=== PATIENT | male | born 1945 | race Caucasian/White ===

== ENCOUNTER 2024-03-20 13:27 | Inpatient (IN) | payer MEDICARE, BC ==
[~2024-03-20] VITALS: Ht 180.3 cm; Wt 99.8 kg
[2024-03-20] MEDS ORDERED: ONDANSETRON HCL 4 MG TABLET ONE (15:12)
[2024-03-20] MEDS ORDERED: MORPHINE SULFATE 4 MG/1 ML DISP.SYRIN ONE (15:13)
[2024-03-20 15:54] LABS: BASOPHILS # (AUTO) 0.1 K/UL (0.0-0.2); BASOPHILS % (AUTO) 0.9 % (0.0-2.0); HEMATOCRIT 42.8 % (36.7-47.1); HEMOGLOBIN 14.7 g/dL (12.5-16.3); LYMPHOCYTES # (AUTO) 0.5 K/uL (0.8-4.8); LYMPHOCYTES % (AUTO) 5.5 % (20.5-51.5); MEAN CORPUSCULAR HEMOGLOBIN 35.1 uug (23.8-33.4); MEAN CORPUSCULAR HGB CONC 34 g/dL (32.5-36.3); MEAN CORPUSCULAR VOLUME 102.1 fL (73.0-96.2); MONOCYTES # (AUTO) 0.8 K/uL (0.1-1.30); MONOCYTES % (AUTO) 9.2 % (0.0-11.0); NEUTROPHILS # (AUTO) 7.1 K/uL (1.8-8.9); NEUTROPHILS % (AUTO) 84.4 % (38.5-71.5); PLATELET COUNT (AUTO) 127 K/uL (152-348); RED BLOOD CELL COUNT(AUTO) 4.19 MIL/uL (4.06-5.63); RED CELL DISTRIBUTION WIDTH 13.9 % (12.1-16.2); WHITE BLOOD COUNT (AUTO) 8.4 K/uL (3.6-10.2)
[2024-03-20 15:55] LABS: DIFFERENTIAL COMMENT 1
[2024-03-20 16:04] LABS: CALCIUM 8.9 mg/dL (8.5-10.1); CARBON DIOXIDE 27 mmol/L (21-32); CHLORIDE 97 mmol/L (98-107); CREATININE 0.8 mg/dL (0.6-1.3); GLUCOSE 119 mg/dL (74-106); POTASSIUM 3.4 mmol/L (3.5-5.1); SODIUM SERUM 141 mmol/L (136-145); UREA NITROGEN, BLOOD 9 mg/dL (7-18)
[2024-03-20 16:17] LABS: ALANINE AMINOTRANSFERASE 124 U/L (16-63); ALBUMIN 3.7 g/dL (3.4-5.0); ALKALINE PHOSPHATASE 106 U/L (50-136); ASPARTATE AMINOTRANSFERASE 295 U/L (15-37); BILIRUBIN,DIRECT 0.7 mg/dL (0.0-0.2); BILIRUBIN,TOTAL 2.1 mg/dL (0.2-1.0); NT-PRO BNP 293 pg/mL (0-125); TOTAL PROTEIN, SERUM 7.4 g/dL (6.4-8.2)
[2024-03-20] MEDS ORDERED: CLONIDINE HCL 0.2 MG TABLET ONE (17:03)
[2024-03-20] MEDS ORDERED: LORAZEPAM 2 MG/1 ML VIAL ONE (17:05)
[2024-03-20] MEDS: LORAZEPAM 2 MG/1 ML VIAL IV ONE (17:16)
[2024-03-20] MEDS: CLONIDINE HCL 0.2 MG TABLET PO ONE (17:17)
[2024-03-20] MEDS ORDERED: POTASSIUM CHLORIDE 20 MEQ TAB.PRT.SR ONE (17:52)
[2024-03-20] MEDS: POTASSIUM BICARBONATE/CIT AC 25 MEQ TABLET.EFF PO ONE (17:58)
[2024-03-20] MEDS ORDERED: POTASSIUM BICARBONATE/CIT AC 25 MEQ TABLET.EFF ONE (18:00)
[2024-03-20] MEDS ORDERED: FURO80TA3 PO (18:21)
[2024-03-20] MEDS ORDERED: IV NS 1000 ML 1,000 ML IV PRN (18:45)
[2024-03-20] MEDS ORDERED: REMEDY ESSENTIAL ZINC PASTE 113 GM TP PRN (18:45)
[2024-03-20] MEDS ORDERED: ACETAMINOPHEN/CODEINE 300-30 MG TABLET PO PRN (18:45)
[2024-03-20] MEDS ORDERED: ONDANSETRON 4 MG/2 ML VIAL IV PRN (18:45)
[2024-03-20] MEDS ORDERED: MAGNESIUM HYDROXIDE 30 ML LIQUID UDC PO PRN (18:45)
[2024-03-20] MEDS: CHLORDIAZEPOXIDE HCL 25 MG CAPSULE PO PRN (22:33)
[2024-03-20] MEDS: OLANZAPINE 10 MG VIAL IM ONE (23:18)
[2024-03-21 04:33] VITALS: BP 121/85; TEMP 99; O2SAT 92
[2024-03-21] MEDS: ACETAMINOPHEN 325 MG TABLET PO PRN (06:30)
[2024-03-21 07:16] LABS: BASOPHILS % (AUTO) 0.1 % (0.0-2.0); HEMATOCRIT 43.8 % (36.7-47.1); HEMOGLOBIN 15.1 g/dL (12.5-16.3); LYMPHOCYTES # (AUTO) 2.9 K/uL (0.8-4.8); MEAN CORPUSCULAR HEMOGLOBIN 35.9 uug (23.8-33.4); MEAN CORPUSCULAR HGB CONC 34 g/dL (32.5-36.3); MEAN CORPUSCULAR VOLUME 104.4 fL (73.0-96.2); MONOCYTES # (AUTO) 1.8 K/uL (0.1-1.30); MONOCYTES % (AUTO) 17.4 % (0.0-11.0); NEUTROPHILS # (AUTO) 5.6 K/uL (1.8-8.9); NEUTROPHILS % (AUTO) 54.5 % (38.5-71.5); PLATELET COUNT (AUTO) 126 K/uL (152-348); RED CELL DISTRIBUTION WIDTH 13.7 % (12.1-16.2); WHITE BLOOD COUNT (AUTO) 10.2 K/uL (3.6-10.2)
[2024-03-21 07:26] LABS: CALCIUM 9.8 mg/dL (8.5-10.1); CARBON DIOXIDE 30 mmol/L (21-32); CHLORIDE 99 mmol/L (98-107); CHOLESTEROL 191 mg/dL (<200); CREATININE 1.2 mg/dL (0.6-1.3); GLUCOSE 119 mg/dL (74-106); HDL CHOLESTEROL 102 mg/dL (40-60); MAGNESIUM 2.2 mg/dL (1.8-2.4); PHOSPHOROUS 3.9 mg/dL (2.5-4.9); POTASSIUM 3.9 mmol/L (3.5-5.1); SODIUM SERUM 141 mmol/L (136-145); TRIGLYCERIDES 94 MG/DL (30-150); UREA NITROGEN, BLOOD 11 mg/dL (7-18)
[2024-03-21 07:27] LABS: DIFFERENTIAL COMMENT 1
[2024-03-21 07:47] VITALS: BP 170/86; TEMP 99.1; O2SAT 90
[2024-03-21 08:21] LABS: THYROID STIMULATING HORMONE 2.666 mIU/mL (0.358-3.740)
[2024-03-21] MEDS: THIAMINE HCL 100 MG TABLET PO SCH (09:40)
[2024-03-21 10:57] LABS: LYMPHOCYTES % (MANUAL) 28 % (20-40); MONOCYTES % (MANUAL) 17 % (2-10); NEUTROPHILS % (MANUAL) 55 % (42-75)
[2024-03-21 10:58] LABS: PLATELET ESTIMATE DECREASED
[2024-03-21 11:56] VITALS: BP 125/82; TEMP 97.6; O2SAT 97
[2024-03-21] MEDS ORDERED: TIZA4TAB5 PO (12:50)
[2024-03-21 14:41] LABS: *BILIRUBIN,URIN 1+ (NEGATIVE); *BLOOD, URINE 3+ (NEGATIVE); *CLARITY,URINE CLEAR (CLEAR); *COLOR,URINE DARK YELLOW (YELLOW); *KETONES,URINE 3+ (NEGATIVE); *PROTEIN,URINE 2+ (NEGATIVE); LEUKOCYTE ESTERASE ,URINE NEGATIVE (NEGATIVE); NITRITE, URINE POSITIVE (NEGATIVE); PH,URINE 8.5 (5.0-8.0); UGLUCOSE NEGATIVE (NEGATIVE)
[2024-03-21 14:55] LABS: BACTERIA,URINE FEW /HPF (NONE SEEN); SQUAMOUS EPITHELIAL CELL,UR FEW /HPF (NONE SEEN); WBC,URINE 0-3 /HPF (0-3)
[2024-03-21 14:57] LABS: *AMPHETAMINE, URINE NEGATIVE (NEGATIVE); *BARBITURATE, URINE NEGATIVE (NEGATIVE); *BENZODIAZEPINE, URINE NEGATIVE (NEGATIVE); *CANNABINOID, URINE NEGATIVE (NEGATIVE); *COCCAINE, URINE NEGATIVE (NEGATIVE); *OPIATE, URINE NEGATIVE (NEGATIVE); *PHENCYCLIDINE SCREEN,URINE NEGATIVE (NEGATIVE); FENTANYL, URINE NEGATIVE (NEGATIVE)
[2024-03-21 15:54] VITALS: BP 132/73; TEMP 97.6; O2SAT 93
[2024-03-21] MEDS: IV D5/ 0.9% NACL 1,000 ML IV PRN (17:58)
[2024-03-21 19:00] VITALS: BP 166/96; TEMP 98.3; O2SAT 96
[2024-03-21] MEDS: LORAZEPAM 2 MG/1 ML VIAL IV PRN (19:22)
[2024-03-22] VITALS (7 sets, daily range): BP systolic 115–156; BP diastolic 69–95; TEMP 98.2–98.6; O2SAT 94–96
[2024-03-22] MEDS: TIZANIDINE HCL 4 MG TABLET PO PRN (02:27)
[2024-03-22 07:37] LABS: CALCIUM 8.7 mg/dL (8.5-10.1); CARBON DIOXIDE 32 mmol/L (21-32); CHLORIDE 106 mmol/L (98-107); CREATININE 0.8 mg/dL (0.6-1.3); GLUCOSE 120 mg/dL (74-106); POTASSIUM 3.2 mmol/L (3.5-5.1); SODIUM SERUM 145 mmol/L (136-145); UREA NITROGEN, BLOOD 17 mg/dL (7-18)
[2024-03-22] MEDS: CEFTRIAXONE 1 G in IV DEXTROSE 5% 50 ML IV SCH (10:39)
[2024-03-22] MEDS: POTASSIUM CHLORIDE 20 MEQ POWDER PACKET PO ONE ×2 (10:41→14:06)
[2024-03-22] MEDS ORDERED: methylPREDNISolone 1 PACK TAB.DS.PK [4MG TAB] PO ONE (13:30)
[2024-03-22] MEDS: MEDIHONEY= THERAHONEY 1.5 OZ TUBE TOP SCH (17:58)
[2024-03-23] VITALS: BP 138/77; TEMP 98.4; O2SAT 98
[2024-03-23 04:00] VITALS: BP 172/96; TEMP 98.7; O2SAT 96
[2024-03-23 04:32] VITALS: O2SAT 95
[2024-03-23] MEDS: hydrALAZINE HCL 10 MG TABLET PO PRN (06:00)
[2024-03-23] MEDS: PANTOPRAZOLE SODIUM 40 MG TABLET.DR PO SCH (06:40)
[2024-03-23] MEDS: methylPREDNISolone 4 MG TABLET PO ONE ×2 (06:40→12:00)
[2024-03-23 06:54] LABS: CALCIUM 8.8 mg/dL (8.5-10.1); CARBON DIOXIDE 35 mmol/L (21-32); CHLORIDE 110 mmol/L (98-107); CREATININE 0.7 mg/dL (0.6-1.3); GLUCOSE 96 mg/dL (74-106); POTASSIUM 3.4 mmol/L (3.5-5.1); SODIUM SERUM 148 mmol/L (136-145); UREA NITROGEN, BLOOD 14 mg/dL (7-18)
[2024-03-23 07:48] VITALS: BP 157/85; TEMP 98.2; O2SAT 97
[2024-03-23] MEDS ORDERED: FAMOTIDINE 20 MG TABLET PO SCH (09:00)
[2024-03-23] MEDS: CEFTRIAXONE 2 G in IV DEXTROSE 5% 100 ML IV SCH (10:41)
[2024-03-23 11:35] VITALS: BP 156/89; TEMP 97.7; O2SAT 96
[2024-03-23] MEDS: POTASSIUM CHLORIDE 20 MEQ TAB.PRT.SR PO ONE (12:00)
[2024-03-23] MEDS ORDERED: HONE15GE TP (14:59)
[2024-03-23] MEDS ORDERED: THIA50TA10 PO (14:59)
[2024-03-23] MEDS ORDERED: MAGN30OR PO (14:59)
[2024-03-23] MEDS ORDERED: ZINC113P3 TP (14:59)
[2024-03-23] MEDS ORDERED: CEPH500C2 PO (14:59)
[2024-03-23] MEDS ORDERED: ACET1TAB23 PO (14:59)
[2024-03-23] MEDS ORDERED: ACET-3117 PO (14:59)
[2024-03-23] MEDS ORDERED: METH4TAB3 PO (14:59)
[2024-03-23] MEDS ORDERED: PANT40TA49 PO (14:59)
[2024-03-23] MEDS ORDERED: HYDR-4075 PO (14:59)
[2024-03-23] MEDS ORDERED: TIZA4CAP6 PO (14:59)
[2024-03-23] MEDS ORDERED: methylPREDNISolone 4 MG TABLET PO ONE ×2 (18:30→21:00)
[2024-03-24] MEDS ORDERED: methylPREDNISolone 4 MG TABLET PO ONE ×4 (07:30→21:00)
[2024-03-25] MEDS ORDERED: methylPREDNISolone 4 MG TABLET PO ONE ×4 (07:30→21:00)
[2024-03-26] MEDS ORDERED: methylPREDNISolone 4 MG TABLET PO ONE ×3 (07:30→21:00)
[2024-03-27] MEDS ORDERED: methylPREDNISolone 4 MG TABLET PO ONE ×2 (07:30→21:00)
[2024-03-28] MEDS ORDERED: methylPREDNISolone 4 MG TABLET PO ONE (07:30)
== END 2024-03-23 13:55 | DRG 640 ==
LOC: ER 13:27 → TELE3 21:20
PROVIDERS: ADMIT Nurse Practitioner Acute Care; ATTEND Nurse Practitioner Acute Care
DX: E51.2 Wernicke's encephalopathy (principal); G93.41 Metabolic encephalopathy; N39.0 Urinary tract infection, site not specified; F10.239 Alcohol dependence with withdrawal, unspecified; K70.10 Alcoholic hepatitis without ascites; F10.229 Alcohol dependence with intoxication, unspecified; D69.59 Other secondary thrombocytopenia; G89.29 Other chronic pain; R60.0 Localized edema; R62.7 Adult failure to thrive; Z68.30 Body mass index [BMI] 30.0-30.9, adult; E66.9 Obesity, unspecified; R79.89 Other specified abnormal findings of blood chemistry; R26.89 Other abnormalities of gait and mobility; R53.1 Weakness; M54.50 Low back pain, unspecified; K76.0 Fatty (change of) liver, not elsewhere classified; I11.9 Hypertensive heart disease without heart failure; Z74.01 Bed confinement status; L89.156 Pressure-induced deep tissue damage of sacral region; L89.326 Pressure-induced deep tissue damage of left buttock; L89.316 Pressure-induced deep tissue damage of right buttock
CPT/HCPCS: 36415; 70030-TC; 70450; 71045; 76700; 83690; 83735; 84100; 84443; 84484; 85025; 93307; 94760; A6213; G0378; G0480; J0696; J2060; J2270; J2358; J7042; J7509; Q0162

== ENCOUNTER 2024-03-23 14:20 | Inpatient (IN) | payer MEDICARE, BC ==
[~2024-03-23] VITALS: Ht 177.8 cm; Wt 99.8 kg
[~2024-03-23 14:20] MED LIST: FURO80TA3 PO; TIZA4TAB5 PO
[2024-03-23 14:43] VITALS: BP 155/82; TEMP 98.4; O2SAT 96
[2024-03-23] MEDS ORDERED: HONE15GE TP (14:59)
[2024-03-23] MEDS ORDERED: THIA50TA10 PO (14:59)
[2024-03-23] MEDS ORDERED: CEPH500C2 PO (14:59)
[2024-03-23] MEDS ORDERED: METH4TAB3 PO (14:59)
[2024-03-23] MEDS ORDERED: ACET1TAB23 PO (14:59)
[2024-03-23] MEDS ORDERED: MAGN30OR PO (14:59)
[2024-03-23] MEDS ORDERED: PANT40TA49 PO (14:59)
[2024-03-23] MEDS ORDERED: TIZA4CAP6 PO (14:59)
[2024-03-23] MEDS ORDERED: ACET-3117 PO (14:59)
[2024-03-23] MEDS ORDERED: ZINC113P3 TP (14:59)
[2024-03-23] MEDS ORDERED: HYDR-4075 PO (14:59)
[2024-03-23 15:00] VITALS: O2SAT 96
[2024-03-23] MEDS ORDERED: TIZANIDINE HCL 4 MG TABLET PO PRN (16:15)
[2024-03-23] MEDS ORDERED: methylPREDNISolone 1 PACK TAB.DS.PK [4MG TAB] PO SCH (16:15)
[2024-03-23] MEDS ORDERED: HOME MED MISCELLANEOUS XX SCH ×3 (16:15)
[2024-03-23] MEDS ORDERED: ACETAMINOPHEN 325 MG TABLET PO PRN (16:15)
[2024-03-23] MEDS ORDERED: MAGNESIUM HYDROXIDE 30 ML LIQUID UDC PO PRN (16:45)
[2024-03-23] MEDS ORDERED: methylPREDNISolone 4 MG TABLET PO ONE (18:30)
[2024-03-23] MEDS: methylPREDNISolone 4 MG TABLET PO ONE ×2 (18:47→21:03)
[2024-03-23 20:28] VITALS: BP 155/94; TEMP 97.6; O2SAT 93
[2024-03-23] MEDS: hydrALAZINE HCL 10 MG TABLET PO PRN (21:03)
[2024-03-23] MEDS: CHLORDIAZEPOXIDE HCL 25 MG CAPSULE PO PRN (21:04)
[2024-03-23] MEDS: METOPROLOL TARTRATE 25 MG TABLET PO SCH (22:30)
[2024-03-23] MEDS: hydrALAZINE HCL 25 MG TABLET PO PRN (22:32)
[2024-03-24 01:20] VITALS: O2SAT 97
[2024-03-24] MEDS: PANTOPRAZOLE SODIUM 40 MG TABLET.DR PO SCH (06:13)
[2024-03-24 06:14] VITALS: BP 156/99; TEMP 97.7; O2SAT 92
[2024-03-24] MEDS: methylPREDNISolone 4 MG TABLET PO ONE ×4 (06:15→21:31)
[2024-03-24] MEDS: CEphaleXIN 500 MG CAPSULE PO SCH (06:16)
[2024-03-24] MEDS: THIAMINE HCL 100 MG TABLET PO SCH (09:28)
[2024-03-24] MEDS: MEDIHONEY= THERAHONEY 1.5 OZ TUBE TOP SCH (09:30)
[2024-03-24 15:13] VITALS: TEMP 97.3
[2024-03-24] MEDS: TRIAMCINOLONE ACET 0.1% CREAM 15 GM TUBE TOP SCH (18:14)
[2024-03-24 20:00] VITALS: BP 160/94; TEMP 98; O2SAT 94
[2024-03-25] VITALS (7 sets, daily range): BP systolic 111–157; BP diastolic 66–81; TEMP 97.6–98.3; O2SAT 94–97
[2024-03-25] MEDS ORDERED: CHLORDIAZEPOXIDE HCL 25 MG CAPSULE PO PRN (00:15)
[2024-03-25] MEDS: methylPREDNISolone 4 MG TABLET PO ONE ×5 (06:45→21:28)
[2024-03-25 08:20] LABS: BASOPHILS % (AUTO) 0.3 % (0.0-2.0); EOSINOPHILS % (AUTO) 0.5 % (0.0-7.0); HEMATOCRIT 41.7 % (36.7-47.1); HEMOGLOBIN 13.9 g/dL (12.5-16.3); LYMPHOCYTES # (AUTO) 0.6 K/uL (0.8-4.8); LYMPHOCYTES % (AUTO) 7.3 % (20.5-51.5); MEAN CORPUSCULAR HEMOGLOBIN 35.2 uug (23.8-33.4); MEAN CORPUSCULAR HGB CONC 33 g/dL (32.5-36.3); MEAN CORPUSCULAR VOLUME 105.8 fL (73.0-96.2); MONOCYTES % (AUTO) 12.6 % (0.0-11.0); NEUTROPHILS # (AUTO) 6.5 K/uL (1.8-8.9); NEUTROPHILS % (AUTO) 79.3 % (38.5-71.5); PLATELET COUNT (AUTO) 112 K/uL (152-348); RED BLOOD CELL COUNT(AUTO) 3.94 MIL/uL (4.06-5.63); RED CELL DISTRIBUTION WIDTH 13.9 % (12.1-16.2); WHITE BLOOD COUNT (AUTO) 8.2 K/uL (3.6-10.2)
[2024-03-25 08:21] LABS: DIFFERENTIAL COMMENT 1
[2024-03-25 08:36] LABS: ALANINE AMINOTRANSFERASE 233 U/L (16-63); ALBUMIN 2.9 g/dL (3.4-5.0); ALKALINE PHOSPHATASE 105 U/L (50-136); ASPARTATE AMINOTRANSFERASE 197 U/L (15-37); BILIRUBIN,TOTAL 1.4 mg/dL (0.2-1.0); CALCIUM 8.7 mg/dL (8.5-10.1); CARBON DIOXIDE 32 mmol/L (21-32); CHLORIDE 111 mmol/L (98-107); CREATININE 0.9 mg/dL (0.6-1.3); GLUCOSE 154 mg/dL (74-106); MAGNESIUM 2.3 mg/dL (1.8-2.4); PHOSPHOROUS 3.9 mg/dL (2.5-4.9); POTASSIUM 3.9 mmol/L (3.5-5.1); SODIUM SERUM 151 mmol/L (136-145); TOTAL PROTEIN, SERUM 6.7 g/dL (6.4-8.2); UREA NITROGEN, BLOOD 27 mg/dL (7-18)
[2024-03-25] MEDS: ACETAMINOPHEN/CODEINE 300-30 MG TABLET PO PRN (09:06)
[2024-03-26 03:14] VITALS: O2SAT 97
[2024-03-26 06:34] VITALS: BP 172/81; TEMP 97.5; O2SAT 95
[2024-03-26] MEDS: methylPREDNISolone 4 MG TABLET PO ONE ×2 (06:48→21:37)
[2024-03-26 07:28] LABS: BASOPHILS % (AUTO) 0.4 % (0.0-2.0); EOSINOPHILS % (AUTO) 0.6 % (0.0-7.0); HEMATOCRIT 40.8 % (36.7-47.1); HEMOGLOBIN 13.7 g/dL (12.5-16.3); LYMPHOCYTES # (AUTO) 0.7 K/uL (0.8-4.8); LYMPHOCYTES % (AUTO) 9.5 % (20.5-51.5); MEAN CORPUSCULAR HEMOGLOBIN 35.7 uug (23.8-33.4); MEAN CORPUSCULAR HGB CONC 34 g/dL (32.5-36.3); MEAN CORPUSCULAR VOLUME 106.6 fL (73.0-96.2); MONOCYTES # (AUTO) 1.3 K/uL (0.1-1.30); MONOCYTES % (AUTO) 17.3 % (0.0-11.0); NEUTROPHILS # (AUTO) 5.3 K/uL (1.8-8.9); NEUTROPHILS % (AUTO) 72.2 % (38.5-71.5); PLATELET COUNT (AUTO) 106 K/uL (152-348); RED BLOOD CELL COUNT(AUTO) 3.83 MIL/uL (4.06-5.63); RED CELL DISTRIBUTION WIDTH 13.7 % (12.1-16.2); WHITE BLOOD COUNT (AUTO) 7.3 K/uL (3.6-10.2)
[2024-03-26 07:32] LABS: DIFFERENTIAL COMMENT 1
[2024-03-26 08:00] LABS: ALANINE AMINOTRANSFERASE 189 U/L (16-63); ALBUMIN 2.8 g/dL (3.4-5.0); ALKALINE PHOSPHATASE 96 U/L (50-136); ASPARTATE AMINOTRANSFERASE 118 U/L (15-37); BILIRUBIN,TOTAL 1.1 mg/dL (0.2-1.0); CALCIUM 8.8 mg/dL (8.5-10.1); CARBON DIOXIDE 34 mmol/L (21-32); CHLORIDE 115 mmol/L (98-107); CREATININE 0.8 mg/dL (0.6-1.3); GLUCOSE 106 mg/dL (74-106); MAGNESIUM 2.5 mg/dL (1.8-2.4); PHOSPHOROUS 4.7 mg/dL (2.5-4.9); POTASSIUM 4.2 mmol/L (3.5-5.1); SODIUM SERUM 154 mmol/L (136-145); TOTAL PROTEIN, SERUM 6.3 g/dL (6.4-8.2); UREA NITROGEN, BLOOD 23 mg/dL (7-18)
[2024-03-26 09:05] LABS: EOSINOPHILS % (MANUAL) 1 % (0-8); LYMPHOCYTES % (MANUAL) 10 % (20-40); MONOCYTES % (MANUAL) 17 % (2-10); NEUTROPHILS % (MANUAL) 72 % (42-75); PLATELET ESTIMATE DECREASED
[2024-03-26] MEDS: REMEDY ESSENTIAL ZINC PASTE 113 GM TOP PRN (10:21)
[2024-03-26 12:10] VITALS: BP 121/70; TEMP 97.6; O2SAT 96
[2024-03-26] MEDS: IV D5W 1000ML 1,000 ML IV SCH (13:21)
[2024-03-26 16:00] VITALS: BP 130/65; TEMP 98.8; O2SAT 94
[2024-03-26 20:09] VITALS: BP 134/69; TEMP 97.4; O2SAT 90
[2024-03-26 20:57] LABS: ABG HCO3 30.9 mmol/L (21.0-28.0); ABG PCO2 75.7 mmHg (35.0-48.0); ABG PH 7.229 (7.350-7.450); ABG PO2 94.9 mmHg (83.0-108.0); ABG SITE LEFT RADIAL; ABG TOTAL HEMOGLOBIN 14.7 G/dL (13.5-17.5); AaDO2 95.6 mmHg; COHb 1.2 % (0.5-1.5); MetHb 0.2 % (0.0-1.5); O2Hb 94.5 % (94.0-98.0)
[2024-03-26] MEDS ORDERED: IPRATROPIUM BROMIDE 0.5 MG/2.5 ML NEBU NEB PRN (21:15)
[2024-03-26] MEDS ORDERED: ALBUTEROL SULFATE 2.5 MG/3 ML NEBU NEB PRN (21:15)
[2024-03-26] MEDS ORDERED: methylPREDNISolone 4 MG TABLET ONE (21:29)
[2024-03-26 21:38] VITALS: BP 134/69
[2024-03-27] MEDS ORDERED: methylPREDNISolone 4 MG TABLET PO ONE ×2 (07:30→21:00)
[2024-03-27] MEDS ORDERED: ACET325T53 PO (09:16)
[2024-03-28] MEDS ORDERED: methylPREDNISolone 4 MG TABLET PO ONE (07:30)
== END 2024-03-26 22:30 | disposition short-term general hospital (02) | DRG 640 ==
PROVIDERS: ADMIT Physical Medicine & Rehabilitation; ATTEND Physical Medicine & Rehabilitation Pain Medicine
DX: E51.2 Wernicke's encephalopathy (principal); G92.8 Other toxic encephalopathy; N39.0 Urinary tract infection, site not specified; F10.139 Alcohol abuse with withdrawal, unspecified; E87.0 Hyperosmolality and hypernatremia; D69.59 Other secondary thrombocytopenia; G89.29 Other chronic pain; L89.159 Pressure ulcer of sacral region, unspecified stage; E66.9 Obesity, unspecified; Z68.30 Body mass index [BMI] 30.0-30.9, adult; D53.9 Nutritional anemia, unspecified; B96.89 Other specified bacterial agents as the cause of diseases classified elsewhere; E78.5 Hyperlipidemia, unspecified; R60.0 Localized edema; F10.129 Alcohol abuse with intoxication, unspecified; I10 Essential (primary) hypertension; K70.30 Alcoholic cirrhosis of liver without ascites; M47.812 Spondylosis without myelopathy or radiculopathy, cervical region; R09.02 Hypoxemia; Z74.09 Other reduced mobility; R26.89 Other abnormalities of gait and mobility
CPT/HCPCS: 36415; 36600; 70030-TC; 71045; 82803; 83735; 84100; 85025; 97535-GO-CO; A4606; A4663; J7070; J7509

== ENCOUNTER 2024-03-26 23:31 | Inpatient (IN) | payer MEDICARE, BC ==
[~2024-03-26] VITALS: Ht 177.8 cm; Wt 103.1 kg
[~2024-03-26 23:31] MED LIST changes: +ACET-3117 PO; +ACET1TAB23 PO; +CEPH500C2 PO; +HONE15GE TP; +HYDR-4075 PO; +MAGN30OR PO; +METH4TAB3 PO; +PANT40TA49 PO; +THIA50TA10 PO; +TIZA4CAP6 PO; -TIZA4TAB5 PO; +ZINC113P3 TP
[2024-03-27 00:20] LABS: BASOPHILS % (AUTO) 0.4 % (0.0-2.0); EOSINOPHILS % (AUTO) 0.7 % (0.0-7.0); HEMATOCRIT 44.2 % (36.7-47.1); HEMOGLOBIN 14.7 g/dL (12.5-16.3); LYMPHOCYTES # (AUTO) 0.7 K/uL (0.8-4.8); LYMPHOCYTES % (AUTO) 10.9 % (20.5-51.5); MEAN CORPUSCULAR HEMOGLOBIN 35.5 uug (23.8-33.4); MEAN CORPUSCULAR HGB CONC 33 g/dL (32.5-36.3); MEAN CORPUSCULAR VOLUME 107.1 fL (73.0-96.2); MONOCYTES # (AUTO) 1.2 K/uL (0.1-1.30); NEUTROPHILS # (AUTO) 4.5 K/uL (1.8-8.9); PLATELET COUNT (AUTO) 110 K/uL (152-348); RED BLOOD CELL COUNT(AUTO) 4.13 MIL/uL (4.06-5.63); RED CELL DISTRIBUTION WIDTH 13.9 % (12.1-16.2); WHITE BLOOD COUNT (AUTO) 6.5 K/uL (3.6-10.2)
[2024-03-27 00:23] LABS: ABG BASE EXCESS 5.9 mmol/L (-2.0-3.0); ABG PCO2 80.5 mmHg (35.0-48.0); ABG PH 7.268 (7.350-7.450); ABG PO2 98.2 mmHg (83.0-108.0); ABG SITE RIGHT RADIAL; ABG TOTAL HEMOGLOBIN 14.6 G/dL (13.5-17.5); AaDO2 96.2 mmHg; COHb 0.8 % (0.5-1.5); MetHb 0.2 % (0.0-1.5); O2Hb 95.9 % (94.0-98.0)
[2024-03-27 00:41] LABS: DIFFERENTIAL COMMENT 1
[2024-03-27 00:53] LABS: ALANINE AMINOTRANSFERASE 197 U/L (16-63); ALBUMIN 2.9 g/dL (3.4-5.0); ALKALINE PHOSPHATASE 107 U/L (50-136); ASPARTATE AMINOTRANSFERASE 110 U/L (15-37); BILIRUBIN,DIRECT 0.4 mg/dL (0.0-0.2); CALCIUM 8.6 mg/dL (8.5-10.1); CARBON DIOXIDE 35 mmol/L (21-32); CHLORIDE 112 mmol/L (98-107); CREATININE 0.8 mg/dL (0.6-1.3); GLUCOSE 114 mg/dL (74-106); NT-PRO BNP 1120 pg/mL (0-125); SODIUM SERUM 151 mmol/L (136-145); TOTAL PROTEIN, SERUM 6.7 g/dL (6.4-8.2); UREA NITROGEN, BLOOD 21 mg/dL (7-18)
[2024-03-27] MEDS ORDERED: ALBUTEROL SULFATE 2.5 MG/3 ML NEBU NEB PRN (01:15)
[2024-03-27] MEDS ORDERED: MAGNESIUM HYDROXIDE 30 ML LIQUID UDC PO PRN (01:15)
[2024-03-27] MEDS ORDERED: ENOXAPARIN SODIUM 40 MG/0.4 ML DISP.SYRIN SQ SCH (01:15)
[2024-03-27] MEDS ORDERED: ONDANSETRON 4 MG/2 ML VIAL IV PRN (01:15)
[2024-03-27] MEDS: IV D5W 1000ML 1,000 ML IV ONE (01:27)
[2024-03-27 02:42] LABS: EOSINOPHILS % (MANUAL) 2 % (0-8); LYMPHOCYTES % (MANUAL) 13 % (20-40); MONOCYTES % (MANUAL) 16 % (2-10); NEUTROPHILS % (MANUAL) 69 % (42-75)
[2024-03-27] MEDS ORDERED: FUROSEMIDE 40 MG/4 ML VIAL ONE (08:54)
[2024-03-27 08:58] LABS: CALCIUM 8.2 mg/dL (8.5-10.1); CARBON DIOXIDE 34 mmol/L (21-32); CHLORIDE 112 mmol/L (98-107); CREATININE 0.8 mg/dL (0.6-1.3); GLUCOSE 122 mg/dL (74-106); NT-PRO BNP 927 pg/mL (0-125); POTASSIUM 4.2 mmol/L (3.5-5.1); SODIUM SERUM 151 mmol/L (136-145); UREA NITROGEN, BLOOD 20 mg/dL (7-18)
[2024-03-27] MEDS: ENOXAPARIN SODIUM 40 MG/0.4 ML DISP.SYRIN SQ SCH (09:00)
[2024-03-27] MEDS: FUROSEMIDE 40 MG/4 ML VIAL IV ONE (09:09)
[2024-03-27] MEDS ORDERED: ACET325T53 PO (09:16)
[2024-03-27 09:28] LABS: ABG BASE EXCESS 6.2 mmol/L (-2.0-3.0); ABG HCO3 31.2 mmol/L (21.0-28.0); ABG PCO2 46.6 mmHg (35.0-48.0); ABG PH 7.444 (7.350-7.450); ABG PO2 71.6 mmHg (83.0-108.0); ABG SITE LEFT RADIAL; ABG TOTAL HEMOGLOBIN 13.8 G/dL (13.5-17.5); AaDO2 94.9 mmHg; COHb 0.8 % (0.5-1.5); MetHb 0.4 % (0.0-1.5); O2Hb 93.9 % (94.0-98.0)
[2024-03-27] MEDS ORDERED: ENOXAPARIN SODIUM 40 MG/0.4 ML DISP.SYRIN SQ ONE (10:06)
[2024-03-27 11:05] VITALS: BP 136/69; TEMP 98.6; O2SAT 96
[2024-03-27] MEDS: levoFLOXacin 500 MG TABLET PO SCH (11:18)
[2024-03-27] MEDS ORDERED: hydrALAZINE HCL 10 MG TABLET PO PRN (11:30)
[2024-03-27] MEDS: ALBUTEROL SULFATE 2.5 MG/3 ML NEBU NEB SCH (13:21)
[2024-03-27] MEDS: IPRATROPIUM BROMIDE 0.5 MG/2.5 ML NEBU NEB SCH (13:21)
[2024-03-27] MEDS: CEphaleXIN 500 MG CAPSULE PO SCH (13:27)
[2024-03-27] MEDS: IV D5W 1000ML 1,000 ML IV SCH (15:27)
[2024-03-27 16:13] LABS: THYROID STIMULATING HORMONE 1.148 mIU/mL (0.358-3.740)
[2024-03-27 16:31] VITALS: BP 118/68; TEMP 98.2; O2SAT 98
[2024-03-27] MEDS ORDERED: FUROSEMIDE 40 MG TABLET PO SCH (17:00)
[2024-03-27 20:19] VITALS: BP 125/69; TEMP 98.6; O2SAT 98
[2024-03-27] MEDS: methylPREDNISolone 4 MG TABLET PO ONE (21:05)
[2024-03-28] VITALS (11 sets, daily range): BP systolic 98–137; BP diastolic 39–70; TEMP 97.8–98.4; O2SAT 93–100
[2024-03-28 05:18] LABS: *AMPHETAMINE, URINE NEGATIVE (NEGATIVE); *BARBITURATE, URINE NEGATIVE (NEGATIVE); *BENZODIAZEPINE, URINE POSITIVE (NEGATIVE); *CANNABINOID, URINE NEGATIVE (NEGATIVE); *COCCAINE, URINE NEGATIVE (NEGATIVE); *OPIATE, URINE POSITIVE (NEGATIVE); *PHENCYCLIDINE SCREEN,URINE NEGATIVE (NEGATIVE); FENTANYL, URINE NEGATIVE (NEGATIVE)
[2024-03-28] MEDS: methylPREDNISolone 4 MG TABLET PO ONE (06:32)
[2024-03-28] MEDS: PANTOPRAZOLE SODIUM 40 MG TABLET.DR PO SCH (06:32)
[2024-03-28 07:06] LABS: BASOPHILS # (AUTO) 0.1 K/UL (0.0-0.2); EOSINOPHILS % (AUTO) 0.8 % (0.0-7.0); HEMATOCRIT 36.8 % (36.7-47.1); HEMOGLOBIN 12.4 g/dL (12.5-16.3); LYMPHOCYTES # (AUTO) 0.8 K/uL (0.8-4.8); MEAN CORPUSCULAR HEMOGLOBIN 35.6 uug (23.8-33.4); MEAN CORPUSCULAR HGB CONC 34 g/dL (32.5-36.3); MEAN CORPUSCULAR VOLUME 105.2 fL (73.0-96.2); MONOCYTES # (AUTO) 1.2 K/uL (0.1-1.30); MONOCYTES % (AUTO) 18.7 % (0.0-11.0); NEUTROPHILS # (AUTO) 4.3 K/uL (1.8-8.9); NEUTROPHILS % (AUTO) 67.5 % (38.5-71.5); PLATELET COUNT (AUTO) 125 K/uL (152-348); RED CELL DISTRIBUTION WIDTH 13.8 % (12.1-16.2); WHITE BLOOD COUNT (AUTO) 6.3 K/uL (3.6-10.2)
[2024-03-28 07:20] LABS: DIFFERENTIAL COMMENT 1
[2024-03-28 07:45] LABS: CALCIUM 8.1 mg/dL (8.5-10.1); CARBON DIOXIDE 37 mmol/L (21-32); CHLORIDE 106 mmol/L (98-107); CREATININE 0.7 mg/dL (0.6-1.3); GLUCOSE 105 mg/dL (74-106); MAGNESIUM 2.1 mg/dL (1.8-2.4); PHOSPHOROUS 3.3 mg/dL (2.5-4.9); POTASSIUM 3.7 mmol/L (3.5-5.1); SODIUM SERUM 145 mmol/L (136-145); UREA NITROGEN, BLOOD 17 mg/dL (7-18)
[2024-03-28 08:12] LABS: LYMPHOCYTES % (MANUAL) 0 % (20-40); NEUTROPHILS % (MANUAL) 0 % (42-75)
[2024-03-28] MEDS: REMEDY ESSENTIAL ZINC PASTE 113 GM TP PRN (08:45)
[2024-03-28] MEDS: ACETAMINOPHEN 325 MG TABLET PO PRN (08:45)
[2024-03-28] MEDS: THIAMINE HCL 100 MG TABLET PO SCH (08:46)
[2024-03-28 09:13] LABS: ALBUMIN 2.3 g/dL (3.4-5.0); BILIRUBIN,DIRECT 0.5 mg/dL (0.0-0.2); BILIRUBIN,TOTAL 1.3 mg/dL (0.2-1.0); TOTAL PROTEIN, SERUM 5.7 g/dL (6.4-8.2)
[2024-03-28 10:16] LABS: ABG BASE EXCESS 6.1 mmol/L (-2.0-3.0); ABG HCO3 30.6 mmol/L (21.0-28.0); ABG PCO2 43.6 mmHg (35.0-48.0); ABG PH 7.464 (7.350-7.450); ABG PO2 74.4 mmHg (83.0-108.0); ABG SITE LEFT BRACHIAL; ABG TOTAL HEMOGLOBIN 13.5 G/dL (13.5-17.5); AaDO2 95.6 mmHg; COHb 0.8 % (0.5-1.5); MetHb 0.2 % (0.0-1.5); O2Hb 93.9 % (94.0-98.0)
[2024-03-28] MEDS: ENSURE ENLIVE (VAN) 240 ML LIQUID PO SCH (16:54)
[2024-03-29] VITALS (11 sets, daily range): BP systolic 124–146; BP diastolic 57–73; TEMP 97.6–98.5; O2SAT 93–99
[2024-03-30] VITALS (12 sets, daily range): BP systolic 112–133; BP diastolic 49–73; TEMP 97.7–98.8; O2SAT 95–98
[2024-03-30] MEDS: FUROSEMIDE 40 MG/4 ML VIAL IV ONE (13:13)
[2024-03-30] MEDS: POTASSIUM CHLORIDE 20 MEQ TAB.PRT.SR PO ONE (13:13)
[2024-03-31] VITALS (11 sets, daily range): BP systolic 120–127; BP diastolic 60–68; TEMP 97–99; O2SAT 92–99
[2024-03-31 06:51] LABS: BASOPHILS # (AUTO) 0.1 K/UL (0.0-0.2); BASOPHILS % (AUTO) 0.9 % (0.0-2.0); EOSINOPHILS # (AUTO) 0.1 K/uL (0.0-0.7); EOSINOPHILS % (AUTO) 1.5 % (0.0-7.0); HEMATOCRIT 37.4 % (36.7-47.1); HEMOGLOBIN 12.9 g/dL (12.5-16.3); LYMPHOCYTES # (AUTO) 0.9 K/uL (0.8-4.8); LYMPHOCYTES % (AUTO) 11.8 % (20.5-51.5); MEAN CORPUSCULAR HEMOGLOBIN 35.9 uug (23.8-33.4); MEAN CORPUSCULAR HGB CONC 34 g/dL (32.5-36.3); MEAN CORPUSCULAR VOLUME 104.6 fL (73.0-96.2); MONOCYTES % (AUTO) 13.2 % (0.0-11.0); NEUTROPHILS # (AUTO) 5.4 K/uL (1.8-8.9); NEUTROPHILS % (AUTO) 72.6 % (38.5-71.5); PLATELET COUNT (AUTO) 193 K/uL (152-348); RED BLOOD CELL COUNT(AUTO) 3.58 MIL/uL (4.06-5.63); RED CELL DISTRIBUTION WIDTH 13.6 % (12.1-16.2); WHITE BLOOD COUNT (AUTO) 7.4 K/uL (3.6-10.2)
[2024-03-31 06:55] LABS: DIFFERENTIAL COMMENT 1
[2024-03-31 07:05] LABS: CALCIUM 8.4 mg/dL (8.5-10.1); CARBON DIOXIDE 32 mmol/L (21-32); CHLORIDE 109 mmol/L (98-107); CREATININE 0.6 mg/dL (0.6-1.3); GLUCOSE 99 mg/dL (74-106); SODIUM SERUM 146 mmol/L (136-145); UREA NITROGEN, BLOOD 15 mg/dL (7-18)
[2024-04-01] VITALS (13 sets, daily range): BP systolic 103–139; BP diastolic 60–76; TEMP 98–98.6; O2SAT 88–98
[2024-04-01 07:49] LABS: ALANINE AMINOTRANSFERASE 149 U/L (16-63); ALBUMIN 2.2 g/dL (3.4-5.0); ALKALINE PHOSPHATASE 108 U/L (50-136); ASPARTATE AMINOTRANSFERASE 92 U/L (15-37); BILIRUBIN,DIRECT 0.3 mg/dL (0.0-0.2); BILIRUBIN,TOTAL 0.8 mg/dL (0.2-1.0); CALCIUM 8.4 mg/dL (8.5-10.1); CARBON DIOXIDE 34 mmol/L (21-32); CHLORIDE 107 mmol/L (98-107); CREATININE 0.7 mg/dL (0.6-1.3); GLUCOSE 96 mg/dL (74-106); MAGNESIUM 2.4 mg/dL (1.8-2.4); PHOSPHOROUS 3.7 mg/dL (2.5-4.9); POTASSIUM 4.5 mmol/L (3.5-5.1); SODIUM SERUM 146 mmol/L (136-145); UREA NITROGEN, BLOOD 14 mg/dL (7-18)
[2024-04-01 07:51] LABS: BASOPHILS # (AUTO) 0.1 K/UL (0.0-0.2); BASOPHILS % (AUTO) 0.8 % (0.0-2.0); EOSINOPHILS # (AUTO) 0.3 K/uL (0.0-0.7); EOSINOPHILS % (AUTO) 4.1 % (0.0-7.0); HEMATOCRIT 36.9 % (36.7-47.1); HEMOGLOBIN 12.6 g/dL (12.5-16.3); LYMPHOCYTES % (AUTO) 13.8 % (20.5-51.5); MEAN CORPUSCULAR HEMOGLOBIN 35.9 uug (23.8-33.4); MEAN CORPUSCULAR HGB CONC 34 g/dL (32.5-36.3); MEAN CORPUSCULAR VOLUME 105.6 fL (73.0-96.2); MONOCYTES # (AUTO) 0.8 K/uL (0.1-1.30); MONOCYTES % (AUTO) 12.1 % (0.0-11.0); NEUTROPHILS # (AUTO) 4.8 K/uL (1.8-8.9); NEUTROPHILS % (AUTO) 69.2 % (38.5-71.5); PLATELET COUNT (AUTO) 218 K/uL (152-348); RED CELL DISTRIBUTION WIDTH 13.5 % (12.1-16.2)
[2024-04-01 07:55] LABS: DIFFERENTIAL COMMENT 1
[2024-04-02] VITALS (11 sets, daily range): BP systolic 113–151; BP diastolic 52–89; TEMP 97.6–98.1; O2SAT 91–100
[2024-04-02] MEDS ORDERED: QUETIAPINE FUMARATE 25 MG TABLET PO PRN (01:45)
[2024-04-02 07:12] LABS: BASOPHILS # (AUTO) 0.1 K/UL (0.0-0.2); EOSINOPHILS # (AUTO) 0.1 K/uL (0.0-0.7); EOSINOPHILS % (AUTO) 1.9 % (0.0-7.0); HEMATOCRIT 33.8 % (36.7-47.1); HEMOGLOBIN 11.8 g/dL (12.5-16.3); LYMPHOCYTES # (AUTO) 0.9 K/uL (0.8-4.8); LYMPHOCYTES % (AUTO) 14.2 % (20.5-51.5); MEAN CORPUSCULAR HEMOGLOBIN 36.3 uug (23.8-33.4); MEAN CORPUSCULAR HGB CONC 35 g/dL (32.5-36.3); MEAN CORPUSCULAR VOLUME 103.7 fL (73.0-96.2); MONOCYTES # (AUTO) 0.8 K/uL (0.1-1.30); MONOCYTES % (AUTO) 12.8 % (0.0-11.0); NEUTROPHILS # (AUTO) 4.5 K/uL (1.8-8.9); NEUTROPHILS % (AUTO) 70.1 % (38.5-71.5); PLATELET COUNT (AUTO) 224 K/uL (152-348); RED BLOOD CELL COUNT(AUTO) 3.26 MIL/uL (4.06-5.63); RED CELL DISTRIBUTION WIDTH 13.6 % (12.1-16.2); WHITE BLOOD COUNT (AUTO) 6.4 K/uL (3.6-10.2)
[2024-04-02 07:40] LABS: CALCIUM 8.4 mg/dL (8.5-10.1); CARBON DIOXIDE 32 mmol/L (21-32); CHLORIDE 107 mmol/L (98-107); CREATININE 0.6 mg/dL (0.6-1.3); GLUCOSE 110 mg/dL (74-106); MAGNESIUM 2.3 mg/dL (1.8-2.4); PHOSPHOROUS 4.1 mg/dL (2.5-4.9); POTASSIUM 4.2 mmol/L (3.5-5.1); SODIUM SERUM 144 mmol/L (136-145); UREA NITROGEN, BLOOD 10 mg/dL (7-18)
[2024-04-02 07:56] LABS: DIFFERENTIAL COMMENT 1
[2024-04-03] MEDS ORDERED: CYANOCOBALAMIN 1,000 MCG TABLET PO SCH (09:00)
[2024-04-03] MEDS ORDERED: HOME MED MISCELLANEOUS PO SCH (09:00)
[2024-04-03] MEDS ORDERED: PYRIDOXINE HCL 100 MG TABLET PO SCH (09:00)
[2024-04-03] MEDS ORDERED: VIT B PO SCH (09:00)
[2024-04-03] MEDS ORDERED: PYRIDOXINE PO SCH (09:00)
[2024-04-03] MEDS ORDERED: METHYLFOLATE PO SCH (09:00)
== END 2024-04-02 18:41 | DRG 189 ==
LOC: ER 23:34 → TELE-TD3 03-27 01:19 → CCU 03-31 08:18 → TELE3 03-31 16:45
PROVIDERS: ADMIT Nurse Practitioner Family; ATTEND Nurse Practitioner Acute Care
PROC: 5A09557 Assistance with Respiratory Ventilation, Greater than 96 Consecutive Hours, Continuous Positive Airway Pressure (ICD-10-PCS; principal; 2024-03-27)
PROC: 05HB33Z Insertion of Infusion Device into Right Basilic Vein, Percutaneous Approach (ICD-10-PCS; 2024-03-28)
DX: J96.02 Acute respiratory failure with hypercapnia (principal); I21.4 Non-ST elevation (NSTEMI) myocardial infarction; I50.32 Chronic diastolic (congestive) heart failure; E87.0 Hyperosmolality and hypernatremia; E66.2 Morbid (severe) obesity with alveolar hypoventilation; E44.0 Moderate protein-calorie malnutrition; E51.2 Wernicke's encephalopathy; J96.01 Acute respiratory failure with hypoxia; E86.0 Dehydration; D75.89 Other specified diseases of blood and blood-forming organs; K76.0 Fatty (change of) liver, not elsewhere classified; G89.29 Other chronic pain; M54.50 Low back pain, unspecified; M54.16 Radiculopathy, lumbar region; G62.9 Polyneuropathy, unspecified; Z68.32 Body mass index [BMI] 32.0-32.9, adult; R60.0 Localized edema; F10.10 Alcohol abuse, uncomplicated; L89.159 Pressure ulcer of sacral region, unspecified stage; Z79.899 Other long term (current) drug therapy; Z74.09 Other reduced mobility
CPT/HCPCS: 36415; 36600; 70030-TC; 71045; 82803; 83605; 83735; 84100; 84443; 84484; 85025; 87040; 93307; 94640; 94660; 94760; A4606; A4663; A6213; G0378; J1650; J1940; J3590; J7060; J7070; J7509

== ENCOUNTER 2024-04-02 19:12 | Inpatient (IN) | payer MEDICARE, BC ==
[~2024-04-02] VITALS: Ht 177.8 cm; Wt 105.3 kg
[~2024-04-02 19:12] MED LIST changes: -ACET-3117 PO; +ACET325T53 PO
[2024-04-02] MEDS ORDERED: REMEDY ESSENTIAL ZINC PASTE 113 GM TOP PRN (21:15)
[2024-04-02] MEDS ORDERED: ACETAMINOPHEN/CODEINE 300-30 MG TABLET PO PRN (21:15)
[2024-04-02] MEDS ORDERED: TIZANIDINE HCL 4 MG TABLET PO SCH (21:15)
[2024-04-02 21:23] VITALS: BP 133/59; TEMP 97.8; O2SAT 93
[2024-04-02] MEDS ORDERED: ACETAMINOPHEN 325 MG TABLET PO PRN (22:30)
[2024-04-02] MEDS: ALBUTEROL SULFATE 2.5 MG/3 ML NEBU NEB SCH (23:35)
[2024-04-02 23:55] VITALS: O2SAT 95
[2024-04-03] VITALS (13 sets, daily range): BP systolic 115–136; BP diastolic 59–72; TEMP 98–98.8; O2SAT 90–99
[2024-04-03] MEDS: IPRATROPIUM BROMIDE 0.5 MG/2.5 ML NEBU NEB SCH (00:32)
[2024-04-03] MEDS: ALBUTEROL SULFATE 2.5 MG/3 ML NEBU NEB SCH (00:32)
[2024-04-03] MEDS: ACETAMINOPHEN/CODEINE 300-30 MG TABLET PO PRN (01:20)
[2024-04-03] MEDS: PANTOPRAZOLE SODIUM 40 MG TABLET.DR PO SCH (06:31)
[2024-04-03] MEDS: PANTOPRAZOLE SODIUM 40 MG TABLET.DR PO ONE (06:42)
[2024-04-03] MEDS ORDERED: PANTOPRAZOLE SODIUM 40 MG TABLET.DR PO SCH (07:30)
[2024-04-03] MEDS: THIAMINE HCL 100 MG TABLET PO SCH (08:24)
[2024-04-03] MEDS: PYRIDOXINE HCL 100 MG TABLET PO SCH (08:24)
[2024-04-03] MEDS: CYANOCOBALAMIN 1,000 MCG TABLET PO SCH (08:24)
[2024-04-03] MEDS: ENSURE ENLIVE (VAN) 240 ML LIQUID PO SCH (08:26)
[2024-04-03] MEDS ORDERED: Medication Not On Formulary EA (Thiamine Hcl (Vitamin B-1) 100 MG) PO SCH (09:00)
[2024-04-03] MEDS ORDERED: PATIENT MAY USE OWN MED- MD OK PO SCH (09:00)
[2024-04-03] MEDS: MAG HYDROX/AL HYDROX/SIMETH 30 ML LIQUID UDC PO SCH (20:49)
[2024-04-04] VITALS (12 sets, daily range): BP systolic 123–134; BP diastolic 56–73; TEMP 97.8–98.1; O2SAT 90–99
[2024-04-04] MEDS: METHYLFOLATE PO SCH (08:17)
[2024-04-04] MEDS: PYRIDOXINE PO SCH (08:17)
[2024-04-04] MEDS: VIT B PO SCH (08:17)
[2024-04-04] MEDS: TIZANIDINE HCL 4 MG TABLET PO PRN (18:24)
[2024-04-05] VITALS (12 sets, daily range): BP systolic 107–125; BP diastolic 51–65; TEMP 97.4–97.9; O2SAT 91–99
[2024-04-05 16:54] LABS: *BILIRUBIN,URIN NEGATIVE (NEGATIVE); *BLOOD, URINE NEGATIVE (NEGATIVE); *CLARITY,URINE CLEAR (CLEAR); *COLOR,URINE YELLOW (YELLOW); *KETONES,URINE TRACE (NEGATIVE); *PROTEIN,URINE NEGATIVE (NEGATIVE); *UROBILINOGEN,URINE 0.2 E.U./dl (NORMAL); LEUKOCYTE ESTERASE ,URINE NEGATIVE (NEGATIVE); NITRITE, URINE NEGATIVE (NEGATIVE); PH,URINE 5.5 (5.0-8.0); UGLUCOSE NEGATIVE (NEGATIVE)
[2024-04-05] MEDS ORDERED: HYDROCORTISONE 1% OINT 28.35 GM TUBE TOP PRN (19:30)
[2024-04-05] MEDS: TRAZODONE 50 MG TABLET PO SCH (21:30)
[2024-04-05] MEDS ORDERED: LACTULOSE 20 G/30 ML LIQUID UDC PO SCH (23:00)
[2024-04-06] VITALS (12 sets, daily range): BP systolic 112–134; BP diastolic 55–68; TEMP 97.8–98.1; O2SAT 92–99
[2024-04-06] MEDS: LACTULOSE 20 G/30 ML LIQUID UDC PO SCH (08:53)
[2024-04-06] MEDS: THIAMINE HCL 100 MG TABLET PO SCH (08:54)
[2024-04-06 09:08] LABS: BASOPHILS % (AUTO) 0.5 % (0.0-2.0); EOSINOPHILS # (AUTO) 0.3 K/uL (0.0-0.7); EOSINOPHILS % (AUTO) 4.9 % (0.0-7.0); HEMATOCRIT 22.6 % (36.7-47.1); HEMOGLOBIN 13.3 g/dL (12.5-16.3); LYMPHOCYTES # (AUTO) 1.2 K/uL (0.8-4.8); LYMPHOCYTES % (AUTO) 18.4 % (20.5-51.5); MEAN CORPUSCULAR HEMOGLOBIN 60.8 uug (23.8-33.4); MEAN CORPUSCULAR HGB CONC 59 g/dL (32.5-36.3); MEAN CORPUSCULAR VOLUME 103.5 fL (73.0-96.2); MONOCYTES # (AUTO) 0.9 K/uL (0.1-1.30); MONOCYTES % (AUTO) 14.5 % (0.0-11.0); NEUTROPHILS # (AUTO) 3.9 K/uL (1.8-8.9); NEUTROPHILS % (AUTO) 61.7 % (38.5-71.5); PLATELET COUNT (AUTO) 591 K/uL (152-348); RED CELL DISTRIBUTION WIDTH 13.9 % (12.1-16.2); WHITE BLOOD COUNT (AUTO) 6.3 K/uL (3.6-10.2)
[2024-04-06 09:10] LABS: DIFFERENTIAL COMMENT 1; RED BLOOD CELL COUNT(AUTO) 2.18 MIL/uL (4.06-5.63)
[2024-04-06 09:31] LABS: ALANINE AMINOTRANSFERASE 132 U/L (16-63); ALBUMIN 2.7 g/dL (3.4-5.0); ALKALINE PHOSPHATASE 116 U/L (50-136); ASPARTATE AMINOTRANSFERASE 71 U/L (15-37); BILIRUBIN,TOTAL 0.6 mg/dL (0.2-1.0); CARBON DIOXIDE 28 mmol/L (21-32); CHLORIDE 105 mmol/L (98-107); CREATININE 0.7 mg/dL (0.6-1.3); GLUCOSE 132 mg/dL (74-106); MAGNESIUM 2.5 mg/dL (1.8-2.4); PHOSPHOROUS 4.8 mg/dL (2.5-4.9); POTASSIUM 4.5 mmol/L (3.5-5.1); SODIUM SERUM 142 mmol/L (136-145); TOTAL PROTEIN, SERUM 6.8 g/dL (6.4-8.2); UREA NITROGEN, BLOOD 8 mg/dL (7-18)
[2024-04-06 10:28] LABS: EOSINOPHILS % (MANUAL) 5 % (0-8); LYMPHOCYTES % (MANUAL) 25 % (20-40); MONOCYTES % (MANUAL) 9 % (2-10); NEUTROPHILS % (MANUAL) 61 % (42-75)
[2024-04-06 10:29] LABS: PLATELET ESTIMATE INCREASED
[2024-04-06] MEDS: MAGNESIUM HYDROXIDE 30 ML LIQUID UDC PO PRN (10:37)
[2024-04-06] MEDS ORDERED: DOCUSATE SODIUM 100 MG/10 ML LIQUID UDC PO PRN (14:45)
[2024-04-07] VITALS (12 sets, daily range): BP systolic 125–159; BP diastolic 60–77; TEMP 97.3–98; O2SAT 92–99
[2024-04-07] MEDS ORDERED: DOCUSATE SODIUM 100 MG CAPSULE PO PRN (07:30)
[2024-04-07] MEDS: DOCUSATE SODIUM 100 MG CAPSULE PO PRN (19:57)
[2024-04-08] VITALS (12 sets, daily range): BP systolic 107–134; BP diastolic 53–68; TEMP 97.3–98.1; O2SAT 94–100
[2024-04-08] MEDS ORDERED: BISACODYL 10 MG SUPP.RECT RC PRN (08:00)
[2024-04-08] MEDS ORDERED: MAGNESIUM HYDROXIDE 30 ML LIQUID UDC PO PRN (08:00)
[2024-04-09] VITALS (10 sets, daily range): BP systolic 114–151; BP diastolic 54–76; TEMP 97.5–98; O2SAT 94–100
[2024-04-10 01:55] VITALS: O2SAT 100
[2024-04-10 06:32] VITALS: BP 157/83; TEMP 97.4; O2SAT 95
[2024-04-10 07:38] VITALS: O2SAT 96
[2024-04-10 07:50] VITALS: O2SAT 100
== END 2024-04-10 13:25 | disposition home health service (06) | DRG 189 ==
PROVIDERS: ADMIT Physical Medicine & Rehabilitation Pain Medicine; ATTEND Physical Medicine & Rehabilitation Pain Medicine
PROC: 5A09357 Assistance with Respiratory Ventilation, Less than 24 Consecutive Hours, Continuous Positive Airway Pressure (ICD-10-PCS; principal; 2024-04-02)
DX: J96.01 Acute respiratory failure with hypoxia (principal); I21.4 Non-ST elevation (NSTEMI) myocardial infarction; E44.0 Moderate protein-calorie malnutrition; E66.2 Morbid (severe) obesity with alveolar hypoventilation; F33.9 Major depressive disorder, recurrent, unspecified; I50.32 Chronic diastolic (congestive) heart failure; J96.02 Acute respiratory failure with hypercapnia; D53.9 Nutritional anemia, unspecified; F10.90 Alcohol use, unspecified, uncomplicated; F41.9 Anxiety disorder, unspecified; G47.00 Insomnia, unspecified; G89.29 Other chronic pain; K76.0 Fatty (change of) liver, not elsewhere classified; L89.159 Pressure ulcer of sacral region, unspecified stage; Z74.09 Other reduced mobility; M19.90 Unspecified osteoarthritis, unspecified site; R60.9 Edema, unspecified
CPT/HCPCS: 36415; 70030-TC; 70551; 71045; 76705; 83735; 84100; 85025; 94640; 94760; 97535-GO-CO; A4663; J3590